=== PATIENT | male | born 1945 | race Caucasian/White ===

== ENCOUNTER 2020-08-09 13:33 | Outpatient (REF) | payer MEDICARE, SELFPAY ==
[2020-08-09 14:49] LABS: Anion Gap 10 (12-20); Blood Urea Nitrogen 20 mg/dL (9-16); Calcium 9.3 mg/dL (8.4-10.2); Carbon Dioxide 30 mmol/L (22-29); Chloride 104 mmol/L (96-108); Estimated Glomerular Filt Rate > 60; Glucose Random 91 mg/dL (60-115); Magnesium 2.1 mg/dL (1.6-2.6); Potassium 4.4 mmol/L (3.3-5.1); Sodium 140 mmol/L (135-145)
== END 2020-08-09 13:34 | disposition home or self-care (01) ==
LOC: HO.LAB 13:33
PROVIDERS: PCP Internal Medicine; Visit Provider Internal Medicine
DX: I48.91 Unspecified atrial fibrillation (principal)
CPT/HCPCS: 36415; 80048; 83735

== ENCOUNTER → 2020-08-19 12:52 | Outpatient (REF) | payer MEDICARE, SELFPAY ==
--- NOTE | 2020-08-19 13:00 | ECG_ITS ---
Hook-up date: 2020-08-19 13:07:00 Duration: 25:36:00 Test Indications: AFIB Medications: [id number] QRS complexes 613 Ventricular ectopics which represent <1 % of total QRS comp. 16187 Supraventricular ectopics which represent 13 % of total QRS comp. * Paced QRS complexs which represent % of total QRS comp. VENTRICULAR ECTOPY 611 Isolated 0 Bigeminal Cycles 1 Couplets 0 Runs 0 Beats in Runs * Beats LONGEST at * BPM at :: -- * Beats FASTEST at * BPM at :: -- SUPRAVENTRICULAR ECTOPY 26130 Isolated 26 Couplets 0 Runs 0 Beats in Runs * Beats LONGEST at * BPM at :: -- * Beats FASTEST at * BPM at :: -- HEART RATES 47 MIN at 00:13:25 2020-08-20 72 AVG 124 MAX at 18:57:23 2020-08-19 LONGEST RR 1.6560 secs at 06:30:18 2020-08-20 S-T LEVELS Channel 1 - 128 mm at 13:07:00 2020-08-19 - 128 mm at 13:07:00 2020-08-19 Channel 2 - 128 mm at 13:07:00 2020-08-19 - 128 mm at 13:07:00 2020-08-19 Channel 3 - 128 mm at 03:22:61 -- - 128 mm at 03:22:61 Underlying rhythm is sinus; Average ventricular rate 72/min; range 47-124/min; Frequent supraventricular ectopy - 14 % of total beats; about 14,000 over 25 Hrs; Mostly isolated without any significant runs; Occasional ventricular ectopy; No evidence of atrial fibrillation; Patient did not report any symptoms in the diary Referred By: Ming Jones Overread By: FREDDY REA
== END ==
LOC: HO.CARD 12:52
PROVIDERS: Visit Provider Internal Medicine
DX: I48.91 Unspecified atrial fibrillation (principal)
CPT/HCPCS: 93225; 93226

== ENCOUNTER → 2020-11-11 13:41 | Outpatient (BNVA) | payer MEDICARE, SELFPAY | PROVIDERS: PCP Internal Medicine; Referring Provider Internal Medicine; Visit Provider Internal Medicine Cardiovascular Disease | DX: I49.1 Atrial premature depolarization (principal); I10 Essential (primary) hypertension; Z79.899 Other long term (current) drug therapy; Z79.82 Long term (current) use of aspirin | CPT/HCPCS: 93005; 99202 ==

== ENCOUNTER → 2021-01-06 12:45 | Outpatient (BNVA) | payer MEDICARE, SELFPAY | PROVIDERS: PCP Internal Medicine; Referring Provider Internal Medicine; Visit Provider Internal Medicine Cardiovascular Disease | DX: I49.1 Atrial premature depolarization (principal); I10 Essential (primary) hypertension; Z87.891 Personal history of nicotine dependence; Z91.013 Allergy to seafood; Z79.899 Other long term (current) drug therapy | CPT/HCPCS: 99212 ==